=== PATIENT | female | born 1970 | race African-American/Black ===

== ENCOUNTER 2021-07-16 04:26 | Day surgery (SDC) | payer BC ==
[2021-07-12 12:59] VITALS: BMI 25.8
[2021-07-16] MEDS ORDERED: LIDOCAINE HCL 1%, 10 MG/ML (20ML VIAL) ONE (10:39)
[2021-07-16] MEDS ORDERED: METHYLENE BLUE 50 MG/10 ML AMPUL ONE (11:07)
[2021-07-16] MEDS ORDERED: MIDAZOLAM HCL 2 MG/2 ML SINGLE DOSE VIAL ONE (12:54)
[2021-07-16] MEDS ORDERED: ceFAZolin SODIUM 1 GM VIAL IVPB ONE (13:10)
[2021-07-16] MEDS ORDERED: LIDOCAINE HCL 1%, 10 MG/ML (20ML VIAL) NR ONE ×2 (13:16)
[2021-07-16] MEDS ORDERED: ONDANSETRON 4 MG/2 ML VIAL IVPUSH PRN (13:27)
[2021-07-16] MEDS ORDERED: oxyCODONE HCL 5 MG TABLET PO PRN (13:27)
[2021-07-16] MEDS ORDERED: LACTATED RINGERS SOLUTION 1,000 ML IV SCH (13:30)
[2021-07-16] MEDS ORDERED: oxyCODONE HCL 5 MG TABLET ONE (14:55)
[2021-07-16 16:05] VITALS: TEMP 97.8
[2021-07-16 17:43] VITALS: BP 140/70; PULSE 72
== END 2021-07-16 16:30 | disposition home or self-care (01) ==
LOC: JASU-SURG 04:26
PROVIDERS: ATTEND Surgery
PROC: 0HBX0ZX Excision of Left Nipple, Open Approach, Diagnostic (ICD-10-PCS; 2021-07-16)
PROC: 0HBU0ZX Excision of Left Breast, Open Approach, Diagnostic (ICD-10-PCS; principal; 2021-07-16 11:00)
DX: D24.2 Benign neoplasm of left breast (principal); N60.12 Diffuse cystic mastopathy of left breast
CPT/HCPCS: 81025; 88307-TC; 94760; Q9968